=== PATIENT | male | born 1995 | race Caucasian/White ===

== ENCOUNTER → 2019-01-01 | Outpatient (CLI) | payer SELFPAY ==
[~2019-01-01] MED LIST: CEFU250T11 PO; FLT22013 INH; HYDR-4226 PO; PRCD5U PO
== END ==
LOC: LAB 09:49
PROVIDERS: ATTEND Obstetrics & Gynecology
DX: Z13.71 Encounter for nonprocreative screening for genetic disease carrier status (principal)
CPT/HCPCS: 36415; 81220

== ENCOUNTER 2019-03-17 18:40 | Emergency (ER) | payer SELFPAY ==
[~2019-03-17] VITALS: Ht 172 cm; Wt 81.6 kg
[2019-03-17] MEDS ORDERED: CLIN300C11 PO (19:24)
--- NOTE | 2019-03-17 19:24 | ED EENT ---
History of Present Illness General Chief Complaint: Dental Problems/Pain Stated Complaint: L JAW/DENTAL PAIN Nursing Triage Note: last two days worsening left sided jaw pain, r/t "bad tooth" Source: patient Exam Limitations: no limitations History of Present Illness Date Seen by Provider: Mar 17, 2019 Time Seen by Provider: 19:19 Initial Comments To ER with reports of left-sided lower dental pain that began 2 days ago. He relates this to a bad tooth, has an appointment with the dentist on April 01. His mother saw his swollen jaw today and insisted he be evaluated. Timing/Duration: abrupt Severity: moderate Location: dental Prearrival Treatment: no prearrival treatment Associated Symptoms: tooth pain Allergies and Home Medications Allergies Coded Allergies: No Known Drug Allergies (Unverified , 02/06/10) Home Medications Cefuroxime Axetil 250 Mg Tablet, 1 EACH PO BID, (Reported) Clindamycin HCl 300 Mg Capsule, 300 MG PO TID Prescribed by: DEBORA ZHU on 03/17/191923 Fluticasone Propionate 1 Ea Aero, 1 PUFF INH BID Prescribed by: JOVAN PEREZ on 02/06/102201 Hydrocodone/Acetaminophen 1 Each Tablet, 1 EACH PO Q4H PRN for PAIN Prescribed by: DEBORA ZHU on 12/14/14 1739 Promethazine/Codeine 5 Ml Syrp, 0 PO Q4H 5 - 10 ML Prescribed by: JOVAN PEREZ on 02/06/10 220 Patient Home Medication List Home Medication List Reviewed: Yes Review of Systems Review of Systems Constitutional: see HPI Eyes: No Symptoms Reported Ears: No Symptoms Reported Nose: no symptoms reported Mouth: see HPI, pain, swelling Throat: no symptoms reported Respiratory: no symptoms reported Cardiovascular: no symptoms reported Musculoskeletal: no symptoms reported Skin: no symptoms reported Neurological: No Symptoms Reported Hematologic/Lymphatic: No Symptoms Reported Immunological/Allergic: no symptoms reported Past Gtaciwx-Deddyn-Xbyrch Hx Patient Social History Alcohol Use: Denies Use Recreational Drug Use: No Smoking Status: Current Everyday Smoker Recent Foreign Travel: No Contact w/Someone Who Travel: No Recent Infectious Disease Expo: No Recent Hopitalizations: No Physical Abuse: No Sexual Abuse: No Mistreated: No Fear: No Seasonal Allergies Seasonal Allergies: Yes Past Medical History Surgeries: Yes (KNEE/SHOULDER SCOPE, TUBES IN EARS) Respiratory: No Cardiac: No Neurological: No Reproductive Disorders: No Genitourinary: No Gastrointestinal: No Musculoskeletal: No Endocrine: No HEENT: No Cancer: No Psychosocial: No Integumentary: No Blood Disorders: No Physical Exam Vital Signs Vital Signs - First Documented 03/17/19 18:47 Temp 37.0 Pulse 92 Resp 18 B/P (MAP) 145/90 (108) Pulse Ox 98 Height, Weight, BMI Height: 5'9" Weight: 170lbs. oz. 77.862201hv; 27.00 BMI Method:Stated General Appearance: WD/WN, no apparent distress Eyes: bilateral eye normal inspection, bilateral eye PERRL, bilateral eye EOMI Ears: bilateral ear auricle normal, bilateral ear canal normal, bilateral ear TM normal Mouth/Throat: mandibular swelling (left side) Neck: non-tender, full range of motion; No lymphadenopathy (R), No lymphadenopathy (L) Respiratory: no respiratory distress, no accessory muscle use Gastrointestinal: normal bowel sounds, non tender Neurologic/Psychiatric: alert, normal mood/affect, oriented x 3 Skin: normal color, warm/dry Progress/Results/Core Measures Results/Orders My Orders Orders - DEBORA ZHU APRN Rx-Hydrocodone/Apap 5-325 Mg (Rx-Vicodin (03/17/19 19:30) Clindamycin Injection (Cleocin Injection (03/17/19 19:30) Vital Signs/I&O 03/17/19 18:47 Temp 37.0 Pulse 92 Resp 18 B/P (MAP) 145/90 (108) Pulse Ox 98 Blood Pressure Mean: 108 POS Departure Impression Primary Impression: Odontogenic infection of jaw Disposition: 01 HOME, SELF-CARE Condition: Stable Departure-Patient Inst. Decision time for Depature: 19:23 Referrals: MOISE LAI DO (PCP/Family) Primary Care Physician Patient Instructions: Dental Pain (DC) Add. Discharge Instructions: 1. Return to ER for any concerns 2. Follow-up with your doctor next week 3. Scripts Clindamycin HCl (Clindamycin HCl) 300 Mg Capsule 300 MG PO TID, #21 CAP Prov: DEBORA ZHU APRN 03/17/19 Images Mouth/Nose 1 - Caries, Fracture Tooth, Swelling, Tenderness DEBORA ZHU APRN Mar 17, 2019 19:24 POS
[2019-03-17] MEDS ORDERED: RX-HYDROCODONE/APAP 5/325 MG #4 TAB PK PO PRN (19:30)
[2019-03-17] MEDS ORDERED: CLINDAMYCIN 300 MG/2ML (CLEOCIN) VIAL IM SCH (19:30)
[2019-03-17 19:46] VITALS: BP 145/90
== END 2019-03-17 19:46 | disposition home or self-care (01) ==
LOC: EDUNIT# 18:40 → ER 18:41
DX: M27.2 Inflammatory conditions of jaws (principal); F17.200 Nicotine dependence, unspecified, uncomplicated
CPT/HCPCS: 99284

== ENCOUNTER 2019-07-04 22:09 | Emergency (ER) | payer SELFPAY ==
[~2019-07-04] VITALS: Ht 172 cm; Wt 80.0 kg
[~2019-07-04 22:09] MED LIST changes: +CLIN300C11 PO
[2019-07-04] MEDS ORDERED: AUGMENTIN 875 MG TAB (AMOXICILLIN/CLAVULANATE) PO SCH (22:30)
[2019-07-04] MEDS ORDERED: predniSONE 20 MG TAB PO ONE (22:30)
[2019-07-04] MEDS ORDERED: PRD20T PO (22:32)
[2019-07-04] MEDS ORDERED: AMOX-358 PO (22:32)
--- NOTE | 2019-07-04 22:33 | ED EENT ---
History of Present Illness General Chief Complaint: General Problems/Pain Stated Complaint: EARACHE Source: patient Exam Limitations: no limitations History of Present Illness Date Seen by Provider: Jul 04, 2019 Time Seen by Provider: 22:30 Initial Comments To ER with left earache 3 weeks, saw primary care got a prescription for eardrops. Has had a ear tubes 6, scheduled to see Dr. Turcios July 29. Timing/Duration: gradual Severity: moderate Location: ear (L) Prearrival Treatment: no prearrival treatment Associated Symptoms: denies symptoms Allergies and Home Medications Allergies Coded Allergies: No Known Drug Allergies (Unverified , 02/06/10) Home Medications Cefuroxime Axetil 250 Mg Tablet, 1 EACH PO BID, (Reported) Clindamycin HCl 300 Mg Capsule, 300 MG PO TID Prescribed by: DEBORA ZHU on 03/17/191923 Fluticasone Propionate 1 Ea Aero, 1 PUFF INH BID Prescribed by: JOVAN PEREZ on 02/06/102201 Hydrocodone/Acetaminophen 1 Each Tablet, 1 EACH PO Q4H PRN for PAIN Prescribed by: DEBORA ZHU on 12/14/14 1739 Promethazine/Codeine 5 Ml Syrp, 0 PO Q4H 5 - 10 ML Prescribed by: JOVAN PEREZ on 02/06/102202 Patient Home Medication List Home Medication List Reviewed: Yes Review of Systems Review of Systems Constitutional: see HPI Eyes: No Symptoms Reported Ears: See HPI, Pain Nose: no symptoms reported Mouth: no symptoms reported Throat: no symptoms reported Respiratory: no symptoms reported Cardiovascular: no symptoms reported Musculoskeletal: no symptoms reported Past Hmrrqet-Cgsmty-Ehnkjq Hx Patient Social History Recent Foreign Travel: No Contact w/Someone Who Travel: No Recent Hopitalizations: No Seasonal Allergies Seasonal Allergies: Yes Past Medical History Surgeries: Yes (KNEE/SHOULDER SCOPE, TUBES IN EARS) Respiratory: No Cardiac: No Neurological: No Reproductive Disorders: No Genitourinary: No Gastrointestinal: No Musculoskeletal: No Endocrine: No HEENT: No Cancer: No Psychosocial: No Integumentary: No Blood Disorders: No Physical Exam Height, Weight, BMI Height: 5'9" Weight: 170lbs. oz. 77.729649vh; 27.00 BMI Method:Stated General Appearance: WD/WN, no apparent distress Eyes: bilateral eye normal inspection, bilateral eye PERRL, bilateral eye EOMI Ears: left ear TM dull, left ear TM red, left ear TM bulging Mouth/Throat: normal mouth inspection, pharynx normal Neck: non-tender, full range of motion, lymphadenopathy (L) Respiratory: no respiratory distress, no accessory muscle use Gastrointestinal: normal bowel sounds, non tender Neurologic/Psychiatric: alert, normal mood/affect Skin: normal color, warm/dry Progress/Results/Core Measures Results/Orders My Orders Orders - DEBORA ZHU APRN Amoxicillin/Clavulanate Tablet (Augmenti (07/04/19 22:30) Prednisone Tablet (Deltasone Tablet) (07/04/19 22:30) Departure Impression Primary Impression: Left otitis media Qualified Codes: H66.005 - Acute suppurative otitis media without spontaneous rupture of ear drum, recurrent, left ear Disposition: HOME, SELF-CARE Condition: Stable Departure-Patient Inst. Decision time for Depature: 22:31 Referrals: MOISE LAI DO (PCP/Family) Primary Care Physician Patient Instructions: Ear Infections (Otitis Media) Add. Discharge Instructions: 1. Oral antibiotics as directed. Steroids as directed. Follow-up with Dr. Turcios as scheduled. All discharge instructions reviewed with patient and/or family. Voiced understanding. Scripts Prednisone (Prednisone) 20 Mg Tab 40 MG PO DAILY, #6 TAB 0 Refills Prov: DEBORA ZHU APRN 07/04/19 Amoxicillin/Potassium Clav (Augmentin 875-125 Tablet) 1 Each Tablet 1 EACH PO BID, #14 TAB 0 Refills Prov: DEBORA ZHU APRN 07/04/19 Work/School Note: Work Release Form Date Seen in the Emergency Department: Jul 04, 2019 Return to Work: Jul 06, 2019 DEBORA ZHU APRN Jul 04, 2019 22:33
[2019-07-04 22:48] VITALS: BP 136/80
== END 2019-07-04 22:49 | disposition home or self-care (01) ==
LOC: EDUNIT# 22:09 → ER 22:10
DX: H66.92 Otitis media, unspecified, left ear (principal); Z79.51 Long term (current) use of inhaled steroids
CPT/HCPCS: 99283